=== PATIENT | male | born 1995 | race Hispanic/Latino ===

== ENCOUNTER 2017-01-28 06:42 | Emergency (ER) | payer OTHER ==
[2017-01-28 06:57] VITALS: O2SAT 98
[2017-01-28] MEDS ORDERED: Liquid Adhesive TOP ONE (08:01)
--- NOTE | 2017-01-28 08:05 | ED PDOC ---
HPI: Skin/Bite Injury Time Seen by Provider: 01/28/17 07:03 Chief Complaint (Nursing): Abnormal Skin Integrity Chief Complaint (Provider): Laceration History Per: Patient History/Exam Limitations: no limitations Onset/Duration Of Symptoms: Days (x1) Current Symptoms Are (Timing): Still Present Additional Complaint(s): 21 y/o male presents to the ED with a laceration to the left thumb that he got last night while drying a stephany. Patient states that it began bleeding again today, which prompted ED visit. Patient reports tetanus is up to date. PMD: None Provided Past Medical History Reviewed: Historical Data, Nursing Documentation, Vital Signs Vital Signs: Last Vital Signs Temp 97 F L 01/28/17 08:09 Pulse 78 01/28/17 08:09 Resp 19 01/28/17 08:09 BP 128/76 01/28/17 08:09 Pulse Ox 98 01/28/17 08:14 - Family History Family History: States: Unknown Family Hx - Immunization History Hx Tetanus Toxoid Vaccination: Yes - Home Medications Home Medications: Ambulatory Orders Medication Instructions Recorded Cephalexin [cephalexin] 500 mg PO BID #20 cap 01/29/17 - Allergies Allergies/Adverse Reactions: Allergies Allergy/AdvReac Type Severity Reaction Status Date / Time No Known Allergies Allergy Verified 01/28/17 06:57 Review of Systems ROS Statement: Except As Marked, All Systems Reviewed And Found Negative Musculoskeletal: Positive for: Hand Pain (laceration to left anterior first digit) Physical Exam - Reviewed Nursing Documentation Reviewed: Yes Vital Signs Reviewed: Yes - Physical Exam Appears: Positive for: Well, Non-toxic, No Acute Distress Extremity: Positive for: Normal ROM, Capillary Refill (< 2 sec), Other ( semicircular superficial avulsion of the skin about 1 cm in length to the left anterior first digit). Negative for: Deformity, Swelling Neurologic/Psych: Positive for: Alert, Oriented - ECG O2 Sat by Pulse Oximetry: 98 (RA) Pulse Ox Interpretation: Normal Medical Decision Making Medical Decision Making: Initial Impression: avulsion Initial Plan: --dermabond --dressing Scribe Attestation: Documented by Chris Almaraz, acting as a scribe for Dr. Stacie Cary. Provider Scribe Attestation: All medical record entries made by the Scribe were at my direction and personally dictated by me. I have reviewed the chart and agree that the record accurately reflects my personal performance of the history, physical exam, medical decision making, and the department course for this patient. I have also personally directed, reviewed, and agree with the discharge instructions and disposition. Disposition - Clinical Impression Clinical Impression: Avulsion of skin of thumb - Patient ED Disposition Is Patient to be Admitted: No - Disposition Disposition: Routine/Home Disposition Time: 08:00 Condition: STABLE Additional Instructions: FOLLOW-UP WITH YOUR PMD FOR REEVALUATION. TAKE MOTRIN NEEDED FOR PAIN. Instructions: Skin Avulsion (ED), Skin Adhesive Care (ED) Forms: [employer] (German)
[2017-01-28 08:10] VITALS: BP 128/76; PULSE 78; RESP 19; TEMP 97
== END 2017-01-28 08:10 | disposition home or self-care (01) ==
LOC: H.ER 06:42
DX: S61.012A Laceration without foreign body of left thumb without damage to nail, initial encounter (principal); W26.8XXA Contact with other sharp object(s), not elsewhere classified, initial encounter; Y92.000 Kitchen of unspecified non-institutional (private) residence as the place of occurrence of the external cause

== ENCOUNTER 2017-01-29 17:42 | Emergency (ER) | payer OTHER ==
[2017-01-29 17:50] VITALS: BP 151/86; PULSE 72; RESP 18; TEMP 98.2; O2SAT 99
--- NOTE | 2017-01-29 18:05 | ED PDOC ---
HPI: Wound Care - HPI Time Seen by Provider: 01/29/17 17:51 Chief Complaint (Nursing): Wound Check Chief Complaint (Provider): Wound check History Per: Patient Exam Limitations: no limitations Additional Complaint(s): Patient is a 21 y/o male with no significant past medical history presenting to the emergency department for evaluation of a left thumb wound that was sustained two nights ago as patient was drying a vegetable stephany. Reports visiting the ED yesterday morning where wound was cleaned and bandaged. Due to signs of a developing infection, patient returned to the ED today. Minimal bleeding and swelling was noted. No drainage or decreased ROM noted. Denies pain , fever, or other complaints. PCP: none provided Past Medical History Reviewed: Historical Data, Nursing Documentation, Vital Signs Vital Signs: Last Vital Signs Temp 98.2 F 01/29/17 17:47 Pulse 72 01/29/17 17:47 Resp 18 01/29/17 17:47 BP 151/86 H 01/29/17 17:47 Pulse Ox 99 01/29/17 17:47 - Medical History PMH: No Chronic Diseases - Surgical History Surgical History: No Surg Hx - Family History Family History: States: Unknown Family Hx - Social History Current smoker - smoking cessation education provided: No Alcohol: Social Drugs: Denies - Immunization History Hx Tetanus Toxoid Vaccination: Yes - Home Medications Home Medications: Ambulatory Orders Medication Instructions Recorded Cephalexin [cephalexin] 500 mg PO BID #20 cap 01/29/17 - Allergies Allergies/Adverse Reactions: Allergies Allergy/AdvReac Type Severity Reaction Status Date / Time No Known Allergies Allergy Verified 01/28/17 06:57 Review of Systems Eyes: Negative for: Pain Skin: Positive for: Other (closed avulsion on left thumb with minimal bleeding and swelling. no decreased rom or drainage.) Physical Exam - Reviewed Nursing Documentation Reviewed: Yes Vital Signs Reviewed: Yes - Physical Exam Appears: Positive for: Well, Non-toxic, No Acute Distress Head Exam: Positive for: ATRAUMATIC, NORMAL INSPECTION, NORMOCEPHALIC Skin: Positive for: Normal Color Eye Exam: Positive for: Normal appearance Neck: Positive for: Normal Cardiovascular/Chest: Positive for: Regular Rate, Rhythm Respiratory: Negative for: Accessory Muscle Use, Respiratory Distress Extremity: Positive for: Normal ROM, Other (closed avulsion with signs of pus formation on dorsal aspect of left thumb. no drainage noted. minimal swelling and bleeding noted.) Neurologic/Psych: Positive for: Alert, Oriented (x3) - ECG O2 Sat by Pulse Oximetry: 99 (RA) Pulse Ox Interpretation: Normal Medical Decision Making Medical Decision Makin:00 Initial impression: Wound check Initial plan: -warm compresses -antibiotics 18:15 Upon provider reevaluation patient is medically stable and requires no further treatment in the ED at this time. Patient will be discharged with Rx for Cephalexin. Counseling was provided and all questions were answered regarding diagnosis and need for follow up with Dr. Navi Marquez. There is agreement to discharge plan. Return if symptoms persist or worsen. Clinical Impression: Skin infection ~ Scribe Attestation: Documented by Danielle Orlando, acting as a scribe for JOE Donald. Provider Scribe Attestation: All medical record entries made by the Scribe were at my direction and personally dictated by me. I have reviewed the chart and agree that the record accurately reflects my personal performance of the history, physical exam, medical decision making, and the department course for this patient. I have also personally directed, reviewed, and agree with the discharge instructions and disposition. Disposition - Clinical Impression Clinical Impression: Encounter for wound re-check, Skin infection - Patient ED Disposition Is Patient to be Admitted: No Doctor Will See Patient In The: Office Counseled Patient/Family Regarding: Diagnosis, Need For Followup, Rx Given - Disposition Referrals: [facility] [Outside] Navi Marquez MD [Staff Provider] - Disposition: Routine/Home Disposition Time: 18:15 Condition: STABLE Additional Instructions: apply warm compress to area. Prescriptions: Cephalexin [cephalexin] 500 mg PO BID #20 cap Instructions: Abscess (ED) Forms: [employer] (Faroese)
== END 2017-01-29 18:12 | disposition home or self-care (01) ==
LOC: H.ER 17:42
DX: Z48.00 Encounter for change or removal of nonsurgical wound dressing (principal)